=== PATIENT | male | born 1985 | race Caucasian/White ===

== ENCOUNTER 2023-03-01 11:51 | Emergency (ER) | payer OTHER ==
--- NOTE | 2023-03-01 13:03 | XR ---
EXAMINATION TYPE: XR knee complete LT DATE OF EXAM: 03/01/2023 CLINICAL HISTORY: Focal swelling and pain rule out osteomyelitis. TECHNIQUE: Three views of the left knee are obtained. COMPARISON: None. FINDINGS: There is no acute fracture/dislocation evident in left knee. Mild tricompartment joint spa ce loss. No significant spurring. There is irregular lucency adjacent to the distal medial femoral co ndyle on frontal image is well seen on additional views suspicious for wound injury. No bony destruct ion seen to suggest acute osteomyelitis. IMPRESSION: As above.
[2023-03-01 13:19] LABS: Basophils % (A) 0 %; Eosinophils # (A) 0.3 k/uL (0-0.7); Eosinophils % (A) 3 %; HCT 46.6 % (39.0-53.0); HGB 15.3 gm/dL (13.0-17.5); Lymphocytes # (A) 2.3 k/uL (1.0-4.8); Lymphocytes % (A) 28 %; MCHC 32.9 g/dL (31.0-37.0); MCV 91.3 fL (80.0-100.0); Mean Platelet Volume 7.9; Monocytes # (A) 0.4 k/uL (0-1.0); Monocytes % (A) 5 %; Neutrophils # (A) 5.2 k/uL (1.3-7.7); Neutrophils % (A) 63 %; Platelet Count 287 k/uL (150-450); RBC 5.11 m/uL (4.30-5.90); RDW 13.9 % (11.5-15.5); WBC 8.4 k/uL (3.8-10.6)
[2023-03-01 13:33] LABS: ALT 28 U/L (4-49); AST 25 U/L (17-59); African American GFR (CKD) >90 (>60 ml/min/1.73 sqM); Albumin 4.4 g/dL (3.5-5.0); Alkaline Phosphatase 91 U/L (38-126); Anion Gap 8 mmol/L; Blood Urea Nitrogen 11 mg/dL (9-20); Calcium 9.5 mg/dL (8.4-10.2); Carbon Dioxide 30 mmol/L (22-30); Chloride 103 mmol/L (98-107); Glucose 85 mg/dL (74-99); Non-African American GFR(CKD) >90 (>60 ml/min/1.73 sqM); Potassium 4.6 mmol/L (3.5-5.1); Sodium 141 mmol/L (137-145); Total Bilirubin 0.3 mg/dL (0.2-1.3); Total Protein 7.6 g/dL (6.3-8.2)
[2023-03-01] MEDS ORDERED: PIPERACILLIN-TAZOBACTAM 3.375 GM in SODIUM CHLORIDE 0.9% 100 ML IVPB STA (14:33)
[2023-03-01] MEDS ORDERED: VANCOMYCIN IV PER PHARMACY 1 EACH MISC MISCELLANE PRN (14:33)
[2023-03-01] MEDS ORDERED: VANCOMYCIN 1,500 MG in SODIUM CHLORIDE 0.9% 500 ML 500 ML IVPB ONE (15:00)
--- NOTE | 2023-03-01 15:15 | ED ---
General Adult HPI <Spenser Bhandari Myesha - Last Filed: 03/01/23 15:28> - General Source: patient, RN notes reviewed Mode of arrival: wheelchair <Sherlyn Singleton - Last Filed: 03/01/23 19:00> - General Chief complaint: Extremity Injury, Lower Stated complaint: Knee Injury Time Seen by Provider: 03/01/23 12:06 - History of Present Illness Initial comments: 37-year-old male with no significant past history presents to the emergency department with a chief complaint of abscess. Patient reports initial injury was on 12/31/2022 and was secondary to a crush injury at work. Patient has been seen and evaluated for this at [facility]. He has been following up with wound care and his primary care physician as instructed. He recently had an MRI performed in [place] on 02/23/2023. He was advised by his primary care physician to be evaluated in the emergency department for evaluation by surgery and infectious disease. He denies any known fevers, chills, redness, numbness, tingling, weakness in the extremity. He does admit that it difficult to bend his left knee, however he still able to ambulate. (Sherlyn Singleton) - Related Data Allergies Allergy/AdvReac Type Severity Reaction Status Date / Time No Known Allergies Allergy Verified 03/01/23 12:04 Review of Systems ROS Other: All systems not noted in ROS Statement are negative. <Spenser Bhandari Myesha - Last Filed: 03/01/23 15:28> ROS Other: All systems not noted in ROS Statement are negative. <Sherlyn Singleton - Last Filed: 03/01/23 19:00> ROS Statement: Those systems with pertinent positive or pertinent negative responses have been documented in the HPI. Past Medical History Past Medical History: No Reported History History of Any Multi-Drug Resistant Organisms: None Reported Past Surgical History: No Surgical Hx Reported Past Psychological History: No Psychological Hx Reported Smoking Status: Current every day smoker Past Alcohol Use History: Occasional Past Drug Use History: Marijuana <Sherlyn Singleton - Last Filed: 03/01/23 19:00> General Exam <Sherlyn Singleton - Last Filed: 03/01/23 19:00> - General Exam Comments Initial Comments: General: Alert, in no acute distress , patient is afebrile Head: atraumatic normocephalic. Eyes PERRL, EOMI intact, mucous membranes moist Respiratory: Lungs clear to auscultation bilaterally Cardiovascular: Heart rate regular rate and rhythm Abdominal: Soft without guarding or rebound Extremities: Normal inspection with full range of motion and normal capillary refill. Left knee with mild generalized edema without surrounding erythema. Popliteal area with marked tenderness, limited ROM secondary to pain and edema Neuroogic: alert and oriented 3, CN II-XII intact, able to ambulate with steady gait Skin: warm dry and intact with normal color (Sherlyn Singleton) Course <Spenser Bhandari - Last Filed: 03/01/23 15:28> <Sherlyn Singleton - Last Filed: 03/01/23 19:00> Vital Signs 03/01/23 03/01/23 03/01/23 12:01 15:57 17:35 Temperature 97.7 F 98.2 F Pulse Rate 85 84 Respiratory 16 14 Rate Blood Pressure 129/89 110/70 O2 Sat by Pulse 100 97 Oximetry 03/01/23 18:51 Temperature 98.6 F Pulse Rate 76 Respiratory 16 Rate Blood Pressure 125/73 O2 Sat by Pulse 98 Oximetry - Reevaluation(s) Reevaluation #1: 03/01/23 15:28 [facility] with [facility], recommends transf er to [facility] for evaluation. Patient has popliteal fossil abscess, intramuscular abscess. (Spenser Bhandari) 03/01/23 15:15 Dr. Bhandari discussed case with orthopedist ZULEYKA Easley who does not agree to accept the patient. [facility] paged. (Sherlyn Singleton) Reevaluation #2: 03/01/23 16:01 Patient reevaluated and updated on results. Patient is agreeable with the plan for transfer to [facility] (Sherlyn Singleton) Reevaluation #3: 03/01/23 17:[address] De La Rosa orthopedic trauma surgeon on-call at [facility] who agrees and accepts the patient (Sherlyn Singleton) Medical Decision Making - Lab Data Result diagrams: 03/01/23 13:10 03/01/23 13:10 <Spenser Bhandari - Last Filed: 03/01/23 15:28> - Lab Data Result diagrams: 03/01/23 13:10 03/01/23 13:10 <Sherlyn Singleton - Last Filed: 03/01/23 19:00> - Medical Decision Making Was pt. sent in by a medical professional or institution (, JESSIE, [employer], urgent care, hospital, or care home...) When possible be specific @ -[No] Did you speak to anyone other than the patient for history (EMS, parent, family, police, friend...)? What history was obtained from this source @ -[No] Did you review nursing and triage notes (agree or disagree)? Why? @ -[I reviewed and agree with nursing and triage notes] Were old charts reviewed (outside hosp., previous admission, EMS record, old EKG, old radiological studies, urgent care reports/EKG's, care home records)? Report findings @ -[No old charts were reviewed] Differential Diagnosis (chest pain, altered mental status, abdominal pain women, abdominal pain men, vaginal bleeding, weakness, fever, dyspnea, syncope, headache, dizziness, GI bleed, back pain, seizure, CVA, palpatations, mental health, musculoskeletal)? @ -[not applicable] EKG interpreted by me (3pts min.). @ -[As above] X-rays interpreted by me (1pt min.). @ -[None done] CT interpreted by me (1pt min.). @ -[None done] U/S interpreted by me (1pt. min.). @ -[None done] What testing was considered but not performed or refused? (CT, X-rays, U/S, labs)? Why? @ -[None] What meds were considered but not given or refused? Why? @ -[None] Did you discuss the management of the patient with other professionals (professionals i.e. JESSIE Pulido, [employer], lab, RT, psych nurse, social welfare research worker, direct mail coordinator, teacher, chief contract officer, corrections caseworker)? Give summary @ -[No] Was smoking cessation discussed for >3mins.? @ -[No] Was critical care preformed (if so, how long)? @ -[No] Were there social determinants of health that impacted care today? How? (Homelessness, low income, unemployed, alcoholism, drug addiction, transportatio n, low edu. Level, literacy, decrease access to med. care, penitentiary, rehab)? @ -[No] Was there de-escalation of care discussed even if they declined (Discuss DNR or withdrawal of care, Hospice)? DNR status @ -[No] What co-morbidities impacted this encounter? (DM, HTN, Smoking, COPD, CAD, Cancer, CVA, ARF, Chemo, Hep., AIDS, mental health diagnosis, sleep apnea, morbid obesity)? @ -[None] Was patient admitted / discharged? Hospital course, mention meds given and route, prescriptions, significant lab abnormalities, going to OR and other pertinent info. @ -Transfer to [facility]. Patient is a 37-year-old male who presents with left popliteal abscess. Patient had a thorough history and physical exam performed physical exam reveals a mildly swollen left knee without marked erythema with tenderness in the popliteal area DT/PT pulses 2+ bilaterally. He should had lab work and imaging performed while in the ED. Lab work and imaging essentially unremarkable. Patient was started on IV Zosyn and Vancomycin. He was given 1 L of IV fluids. Attempted to staff the case [facility] however orthopedic team refused patient. Case discussed with Dr. De La Rosa at [facility] who agrees and accepts the patient for admission. I discussed the results in detail with the patient verbalized understanding and all questions were addressed. He is agreeable with the plan for admission. Patient will be transferred via EMS to [facility] in stable condition. Case discussed with Dr. Bhandari [facility] who agrees with plan of care Undiagnosed new problem with uncertain prognosis? @ -[No] Drug Therapy requiring intensive monitoring for toxicity (Heparin, Nitro, Insulin, Cardizem)? @ -[No] Were any procedures done? @ -[No] Diagnosis/symptom? @ -left popliteal abscess Acute, or Chronic, or Acute on Chronic? @ -acute Uncomplicated (without systemic symptoms) or Complicated (systemic symptoms)? @ -uncomplicated Side effects of treatment? @ -[No] Exacerbation, Progression, or Severe Exacerbation? @ -[No] Poses a threat to life or bodily function? How? (Chest pain, [place], [place], pneumonia, PE, COPD, DKA, ARF, appy, cholecystitis, CVA, Diverticulitis, Homicidal, Suicidal, threat to staff... and all critical care pts) @ -low likelihood (Sherlyn Singleton) - Lab Data Lab Results 03/01/23 03/01/23 Range/Units 13:10 13:10 WBC 8.4 (3.8-10.6) k/uL RBC 5.11 (4.30-5.90) m/uL Hgb 15.3 (13.0-17.5) gm/dL Hct 46.6 (39.0-53.0) % MCV 91.3 (80.0-100.0) fL MCH 30.0 (25.0-35.0) pg MCHC 32.9 (31.0-37.0) g/dL RDW 13.9 (11.5-15.5) % Plt Count 287 (150-450) k/uL MPV 7.9 Neutrophils % 63 % Lymphocytes % 28 % Monocytes % 5 % Eosinophils % 3 % Basophils % 0 % Neutrophils # 5.2 (1.3-7.7) k/uL Lymphocytes # 2.3 (1.0-4.8) k/uL Monocytes # 0.4 (0-1.0) k/uL Eosinophils # 0.3 (0-0.7) k/uL Basophils # 0.0 (0-0.2) k/uL Sodium 141 (137-145) mmol/L Potassium 4.6 (3.5-5.1) mmol/L Chloride 103 (98-107) mmol/L Carbon Dioxide 30 (22-30) mmol/L Anion Gap 8 mmol/L BUN 11 (9-20) mg/dL Creatinine 0.98 (0.66-1.25) mg/dL Est GFR (CKD-EPI)AfAm >90 (>60 ml/min/1.73 sqM) Est GFR (CKD-EPI)NonAf >90 (>60 ml/min/1.73 sqM) Glucose 85 (74-99) mg/dL Calcium 9.5 (8.4-10.2) mg/dL Total Bilirubin 0.3 (0.2-1.3) mg/dL AST 25 (17-59) U/L ALT 28 (4-49) U/L Alkaline Phosphatase 91 (38-126) U/L Total Protein 7.6 (6.3-8.2) g/dL Albumin 4.4 (3.5-5.0) g/dL Disposition <Spenser Bhandari - Last Filed: 03/01/23 15:28> Is patient prescribed a controlled substance at d/c from ED?: No Time of Disposition: 19:00 - Out of Hospital Transfer - Req. Specs Out of Hospital Transfer - Requested Specifics: Other Emergency Center ([facility]) <Sherlyn Singleton - Last Filed: 03/01/23 19:00> Clinical Impression: Abscess of knee, left Disposition: OTHER INSTITUTION NOT DEFINED Referrals: Marcos Lam MD [Primary Care Provider] - 1-2 days
[2023-03-01] MEDS ORDERED: HYDROcodone/APAP 5-325MG 1 EACH TAB PO STA (16:43)
[2023-03-01 18:57] VITALS: BP 125/73; PULSE 76; RESP 16; TEMP 98.6
[2023-03-02] MEDS ORDERED: VANCOMYCIN 1,500 MG in SODIUM CHLORIDE 0.9% 500 ML 500 ML IVPB SCH ×2
== END 2023-03-01 18:58 | disposition other institution (70) ==
LOC: EC 11:51
DX: L02.416 Cutaneous abscess of left lower limb (principal); F17.200 Nicotine dependence, unspecified, uncomplicated; F12.90 Cannabis use, unspecified, uncomplicated
CPT/HCPCS: 36415; 80053; 85025; 73562; 99284; 96365; 96367; 96366 ×2; J2543; J3370